=== PATIENT | female | born 1950 | race Caucasian/White ===

== ENCOUNTER → 2016-11-29 | Day surgery (SDC) | payer MEDICARE, OTHER ==
[~2016-11-29] MED LIST: METFORMIN HCL1000 M1 PO; OXYCONTIN PO; VICTOZA0.6 MG/0.1 SUBQ
--- NOTE | ~2016-11-29 | OR ---
Unit #: [id number] #: [id number] Patient: QUE RIBEIRO [id number] [address] [address] [id number] O MR#: [id number] NAME: QUE RIBEIRO ROOM: Date of Procedure: 11/29/2016 Admission Date: 11/29/2016 Surgeon: Enmanuel Gutierrez M.D. : 1950 Attending Physician: Enmanuel Gutierrez M.D. Primary Care Physician: Cheyanne Dolan A.P.R.N. OPERATIVE REPORT ATTENDING PHYSICIAN YVETTE Frausto. PREOPERATIVE DIAGNOSES Epigastric pain, bloating, and early satiety. In addition, the patient needs a screening colonoscopy. PROCEDURES PERFORMED Upper gastrointestinal endoscopy and biopsy as well as colonoscopy with polypectomy. POSTOPERATIVE DIAGNOSES For upper endoscopy: 1. Distal ulcerative moderately severe erosive esophagitis. 2. Moderate prepyloric antral gastritis. 3. Medium-sized hiatus hernia. 4. Focal patchy erosive duodenitis. Rest of examination up to third part of duodenum was normal. For colonoscopy: 1. A single sessile polyp in the sigmoid colon about 2.5 cm in size. 2. Moderate sigmoid and descending colon diverticulosis. 3. Rest of the examination up to the cecum was normal. RECOMMENDATIONS 1. The patient is being started on pantoprazole 40 mg p.o. daily. 2. She will be followed up in the office in 3 months' time along with results of biopsies and CLOtest taken today. 3. She requires repeat colonoscopy in 5 years for surveillance. SEDATION USED MAC. DESCRIPTION OF PROCEDURE Following detailed explanation of potential risks and complications of an upper endoscopy and a colonoscopy, namely perforation, bleeding, and complications related to sedation, the patient was brought to GI lab and laid in the left lateral decubitus position. Lubricated tip of the Olympus video upper endoscope was passed through the bite block into the proximal esophagus under direct vision. The entire esophageal mucosa was examined and the patient was noted to have moderate grade 2 distal ulcerative erosive esophagitis with erosions at the Z-line in the distal esophagus. The scope was then advanced into the gastric cavity after traversing a small hiatus hernia. Mucosa of the fundus, body, and antrum Unit #: [id number] #: [id number] Patient: QUE RIBEIRO was examined and moderate diffuse prepyloric antral erosive gastritis was noted. Pylorus was intubated with visualization of the duodenal bulb. The latter was noted to have focal patchy erosive duodenitis. Second and third part of duodenum was normal. Upon withdrawal and retroflexion; incisura, cardia, and greater curve was examined and biopsy was obtained from the antrum for CLOtest. The scope was then withdrawn in the distal esophagus. The entire esophageal mucosa was examined all the way up to pharynx. No additional findings were noted. The examination table was then turned by 180 degrees and the patient positioned for a colonoscopy. A digital rectal examination was performed, which was normal. Lubricated tip of the Olympus video colonoscope was inserted through the anus and advanced under direct vision. The scope was advanced past rectosigmoid into descending colon. Multiple medium-sized diverticula were noted in this area. In addition, a single sessile polyp was noted in the proximal sigmoid colon about 2.5 cm in size. The scope tip was then navigated all the way up to cecum with visualization of the ileocecal valve and the appendiceal orifice. Preparation was excellent with good visualization and photodocumentation was obtained. Successive segments of the colonic mucosa were examined upon withdrawal and appeared unremarkable except for the sessile polyp noted earlier. The latter was removed using snare cautery polypectomy. It was retrieved and sent for histology. No additional polyps were noted. Other than the left-sided diverticula, the patient did not have any other abnormalities. No hemorrhoids were seen at the anal verge. The scope was then withdrawn and the patient returned to the recovery area. She tolerated the procedure without any postprocedure complications. Dictated by... Marizol Stiles TD: 11/29/2016 17:30 JOB #: [id number] CC: Cheyanne Dolan A.P.R.N. OPERATIVE REPORT Page 1 of 1 X Enmanuel Gutierrez MD X PROCEDURE OPERATIVE NOTE
== END | disposition home or self-care (01) ==
LOC: COPS 10:14
DX: Z12.11 Encounter for screening for malignant neoplasm of colon (principal); D12.5 Benign neoplasm of sigmoid colon; K57.30 Diverticulosis of large intestine without perforation or abscess without bleeding; K29.70 Gastritis, unspecified, without bleeding; K22.10 Ulcer of esophagus without bleeding; K29.80 Duodenitis without bleeding; K44.9 Diaphragmatic hernia without obstruction or gangrene; K21.9 Gastro-esophageal reflux disease without esophagitis; E11.9 Type 2 diabetes mellitus without complications; Z79.84 Long term (current) use of oral hypoglycemic drugs; Z79.891 Long term (current) use of opiate analgesic; Z79.899 Other long term (current) drug therapy; Z90.49 Acquired absence of other specified parts of digestive tract
CPT/HCPCS: 82947; 87077; 88305